=== PATIENT | female | born 1980 | race American Indian/Alaskan Native ===

== ENCOUNTER 2019-03-20 10:35 | Emergency (ER) | payer MEDICAID ==
[2019-03-20 10:42] VITALS: BP 117/73
--- NOTE | 2019-03-20 11:20 | Emergency Department Report ---
HPI - General Chief Complaint: Medical Clearance Time Seen by Provider: 03/20/19 11:05 - HPI HPI: 38-year-old female presents to the emergency department for "an emergency medication refill" of her psychiatric medications. The patient says that she moved here from [facility] about a month or so ago and she just recently ran out of her medication within the past few weeks. She has a history of bipolar disorder, schizophrenia. The patient says that she has an appointment on Monday with [facility] but she was told to go to the emergency department if she needed anything prior to that appointment. The patient complains of insomnia and some paranoia in which she feels that someone is trying to kill her. She denies any suicidal or homicidal ideations. ED Past Medical Hx - Past Medical History Previous Medical History?: Yes Hx Psychiatric Treatment: Yes (Manic depressant/Bi polar) - Surgical History Past Surgical History?: Yes Additional Surgical History: C section ED Review of Systems ROS: Stated complaint: MED REFILL Other details as noted in HPI Comment: All other systems reviewed and negative Constitutional: denies: chills, fever Respiratory: denies: shortness of breath Cardiovascular: denies: chest pain Gastrointestinal: denies: abdominal pain Neurological: denies: headache, weakness Psychiatric: denies: homicidal thoughts, suicidal thoughts Physical Exam - Physical Exam Vital Signs: Vital Signs 03/20/19 10:40 Temperature 97.8 F Pulse Rate 92 H Respiratory 17 Rate Blood Pressure 117/73 O2 Sat by Pulse 98 Oximetry Physical Exam: GENERAL: The patient is well-developed well-nourished. HENT: Normocephalic. Atraumatic. Patient has moist mucous membranes. EYES: Extraocular motions are intact. NECK: Supple. Trachea is midline. CHEST/LUNGS: Clear to auscultation. There is no respiratory distress noted. HEART/CARDIOVASCULAR: Regular. There is no tachycardia. There is no murmur. ABDOMEN: Abdomen is soft, nontender. Patient has normal bowel sounds. There is no abdominal distention. SKIN: Skin is warm and dry. NEURO: The patient is awake, alert, and cooperative. The patient has no focal neurologic deficits. Normal speech. MUSCULOSKELETAL: There is no tenderness or deformity. There is no evidence of acute injury. PSYCH: Patient has a flat affect. ED Course Vital Signs 03/20/19 10:40 Temperature 97.8 F Pulse Rate 92 H Respiratory 17 Rate Blood Pressure 117/73 O2 Sat by Pulse 98 Oximetry ED Medical Decision Making - Lab Data Result diagrams: 03/20/19 11:27 03/20/19 11:27 - Medical Decision Making This patient presents with the complaint of needing a medication refill for her bipolar disorder and schizophrenia. She has an appointment, allegedly, with [facility] in 2 days. She admits to some insomnia and paranoia. On examination the patient does has a flat affect. During the patient's ED course, I did not notice any response to internal stimuli. She denies any suicidal or homicidal ideations. Some labs were obtained that are mostly unremarkable except for some mild hyperkalemia and a urine drug screen positive for marijuana. The patient was seen by the psychiatric tubing machine operator, Sarita, who agrees that the patient does not necessarily meet criteria to be made a 1013 or to require involuntary inpatient psychiatric admission. We discussed with the patient and her sister that we do not usually refill or restart psychiatric medications when patient's have been off of them for an extended period of time as they usually require some type of titration. The patient's sister says that she is willing to continue to house and monitor the patient until follow-up on Monday, but will return to the emergency department if there is any worsening of her symptoms, signs that she has a desire to harm herself or others, or with any acute distress. - Differential Diagnosis schizophrenia, bipolar disorder, schizoaffective, substance abuse Critical Care Time: No Critical care attestation.: If time is entered above; I have spent that time in minutes in the direct care of this critically ill patient, excluding procedure time. ED Disposition Clinical Impression: History of schizophrenia, History of bipolar disorder, Hypokalemia, Encounter for medication refill Disposition: DC-01 TO HOME OR SELFCARE Is pt being admited?: No Condition: Stable Instructions: Hypokalemia (ED), Bipolar Disorder (ED), Schizophrenia (ED) Additional Instructions: Please follow-up with the [facility] on Monday as previously sche duled, or see the [facility], or any of the other outpatient referrals given to by the psychiatric assessment team. Return to the emergency Department with any worsening of your symptoms, thoughts of harming yourself or others, or with any acute distress. Referrals: [facility] [Outside] - [place] Time of Disposition: 12:36
[2019-03-20 12:16] LABS: Basophils # (Auto) 0.1 K/mm3 (0.0-0.1); Basophils % (Auto) 0.7 % (0.0-1.8); Eosinophils # (Auto) 0.1 K/mm3 (0.0-0.4); Eosinophils % (Auto) 1.5 % (0.0-4.3); Hematocrit 41.3 % (30.3-42.9); Hemoglobin 13.5 gm/dl (10.1-14.3); Lymphocytes # (Auto) 2.7 K/mm3 (1.2-5.4); Lymphocytes % (Auto) 30.4 % (13.4-35.0); Mean Corpuscular HGB Conc 33 % (30-34); Mean Corpuscular Volume 89 fl (79-97); Monocytes # (Auto) 0.5 K/mm3 (0.0-0.8); Monocytes % (Auto) 5.9 % (0.0-7.3); Platelet Count 306 K/mm3 (140-440); Red Blood Count 4.66 M/mm3 (3.65-5.03)
[2019-03-20 12:20] LABS: BUN/Creatinine Ratio 7; Blood Urea Nitrogen 6 mg/dL (7-17); Calcium 9.1 mg/dL (8.4-10.2); Hemolysis Index 6
[2019-03-20] MEDS ORDERED: K-DUR PO ONE (12:34)
[2019-03-20 12:35] LABS: Bacteria,Urine 2+ /HPF (Negative); Bilirubin,Urine NEG (Negative); Blood,Urine NEG (Negative); Color,Urine Yellow (Yellow); Mucus,Urine 2+ /HPF; Protein,Urine <15 mg/dL mg/dL (Negative); Urobilinogen,Urine < 2.0 mg/dL (<2.0)
[2019-03-20 12:39] LABS: Amphetamine Screen,Urine PRESUMPTIVE NEGATIVE; Benzodiazepines Screen,Urine PRESUMPTIVE NEGATIVE; Cocaine Screen,Urine PRESUMPTIVE NEGATIVE; Methadone Screen,Urine PRESUMPTIVE NEGATIVE; Opiate Screen,Urine PRESUMPTIVE NEGATIVE
[2019-03-20 12:51] LABS: Cannabinoid Screen,Urine PRESUMPTIVE POSITIVE
== END 2019-03-20 12:51 | disposition home or self-care (01) ==
LOC: ED 10:35
DX: F31.9 Bipolar disorder, unspecified (principal); F20.9 Schizophrenia, unspecified; Z76.0 Encounter for issue of repeat prescription; E87.6 Hypokalemia
CPT/HCPCS: 36415; 80048; 80307; 80320; 81001; 85025; 99284; G0480

== ENCOUNTER 2021-07-23 04:20 | Emergency (ER) | payer MEDICAID ==
[2021-07-23 05:27] VITALS: BP 104/69
[2021-07-23] MEDS ORDERED: AMOXICILLIN/K CLAV 875/125MG TAB PO ONE (05:45)
[2021-07-23] MEDS ORDERED: traMADol 50 MG TAB PO ONE (05:45)
--- NOTE | 2021-07-23 06:33 | Emergency Department Report ---
ED General Adult HPI - General Chief complaint: Dental/Oral Stated complaint: DENTAL SWELLING Time Seen by Provider: 07/23/21 05:43 Source: patient Mode of arrival: Ambulatory Limitations: No Limitations - History of Present Illness Initial comments: Patient 41-year-old female who presents for dental pain and swelling X4 days. This is an acute on chronic problem. Patient with multiple dental caries. Patient denies fevers denies chills patient denies throat pain or ear pain. Patient is tolerating p.o. intake. Patient has not seen dentist. Patient is a [id number] smoker. Patient does not appear toxic at this time there is no gross facial swelling. Severity scale (0 -10): 6 - Related Data Previous Rx's Medication Instructions Recorded Last Taken Type Amoxicillin [Trimox CAP] 500 mg PO Q8H 7 Days #21 capsule 07/23/21 Unknown Rx Chlorhexidine Mouthwash [Peridex] 15 ml MM BID #1 bottle 07/23/21 Unknown Rx traMADoL [Ultram] 50 mg PO Q6HR PRN #12 tablet 07/23/21 Unknown Rx Allergies Allergy/AdvReac Type Severity Reaction Status Date / Time No Known Allergies Allergy Unverified 03/20/19 10:39 ED Review of Systems ROS: Stated complaint: DENTAL SWELLING Other details as noted in HPI Constitutional: denies: chills, fever Eyes: denies: eye pain, eye discharge, vision change ENT: as per HPI, dental pain. denies: ear pain, throat pain, congestion Respiratory: denies: cough, shortness of breath, wheezing Cardiovascular: denies: chest pain, palpitations Endocrine: no symptoms reported Gastrointestinal: denies: abdominal pain, nausea, vomiting, diarrhea Genitourinary: denies: urgency, dysuria, discharge Musculoskeletal: denies: back pain, joint swelling, arthralgia Skin: denies: rash, lesions Neurological: denies: headache, weakness, paresthesias, vertigo Psychiatric: denies: anxiety, depression Hematological/Lymphatic: denies: easy bleeding, easy bruising ED Past Medical Hx - Past Medical History Hx Psychiatric Treatment: Yes (Manic depressant/Bi polar) - Surgical History Additional Surgical History: C section - Social History Smoking Status: Current Every Day Smoker Substance Use Type: Alcohol - Medications Home Medications: Home Medications Medication Instructions Recorded Confirmed Last Taken Type Amoxicillin [Trimox CAP] 500 mg PO Q8H 7 Days #21 capsule 07/23/21 Unknown Rx Chlorhexidine Mouthwash [Peridex] 15 ml MM BID #1 bottle 07/23/21 Unknown Rx traMADoL [Ultram] 50 mg PO Q6HR PRN #12 tablet 07/23/21 Unknown Rx ED Physical Exam - General Limitations: No Limitations General appearance: alert, in no apparent distress - Head Head exam: Present: normocephalic, normal inspection - Eye Eye exam: Present: normal appearance, PERRL, EOMI Pupils: Present: normal accommodation - ENT ENT exam: Present: mucous membranes moist, TM's normal bilaterally, normal external ear exam - Expanded ENT Exam Expanded Teeth exam: Present: dental caries (Multiple), dental tenderness # (21 mild gum erythema and swelling with no focal abscess noted) Throat exam: Negative: tonsillar erythema, tonsillomegaly, tonsillar exudate, R peritonsillar mass, L peritonsillar mass - Neck Neck exam: Present: normal inspection, full ROM. Absent: tenderness, meningismus, lymphadenopathy, thyromegaly - Respiratory Respiratory exam: Present: normal lung sounds bilaterally. Absent: respiratory distress, wheezes, stridor, chest wall tenderness - Cardiovascular Cardiovascular Exam: Present: regular rate, normal rhythm, normal heart sounds. Absent: systolic murmur, diastolic murmur, rubs, gallop - GI/Abdominal GI/Abdominal exam: Present: soft, normal bowel sounds - Rectal Rectal exam: Present: deferred - Extremities Exam Extremities exam: Present: normal inspection, full ROM, normal capillary refill - Back Exam Back exam: Present: normal inspection, full ROM. Absent: CVA tenderness (R), CVA tenderness (L) - Neurological Exam Neurological exam: Present: alert, oriented X3, CN II-XII intact, normal gait - Expanded Neurological Exam Expanded Patient oriented to: Present: person, place, time Best Eye Response (Mcroberts): (4) open spontaneously Best Motor Response (Mcroberts): (6) obeys commands Best Verbal Response (Mcroberts): (5) oriented Brenda Total: 15 - Psychiatric Psychiatric exam: Present: normal affect, normal mood - Skin Skin exam: Present: warm, dry, intact, normal color. Absent: rash ED Course Vital Signs 07/23/21 07/23/21 05:26 05:57 Temperature 98.6 F Pulse Rate 70 Respiratory 20 14 Rate Blood Pressure 104/69 [Right] O2 Sat by Pulse 100 Oximetry ED Medical Decision Making - Medical Decision Making This is infected dental caries plan DC to home, with prescription. Follow-up with dentist in 2 to 3 days. Return to emergency department should symptoms worsen. Patient currently is alert oriented x3. Patient is tolerating p.o. intake. Patient is with no acute distress at this time. Critical care attestation.: If time is entered above; I have spent that time in minutes in the direct care of this critically ill patient, excluding procedure time. ED Disposition Clinical Impression: Infected dental caries Disposition: 01 HOME / SELF CARE / HOMELESS Is pt being admited?: No Does the pt Need Aspirin: No Condition: Stable Instructions: Dental Abscess, [id number] Additional Instructions: Take medications as prescribed, follow-up with your dentist in 2 to 3 days. Return to the emergency department should symptoms worsen. Prescriptions: Chlorhexidine Mouthwash [Peridex] 15 ml MM BID #1 bottle Amoxicillin [Trimox CAP] 500 mg PO Q8H 7 Days #21 capsule traMADoL [Ultram] 50 mg PO Q6HR PRN #12 tablet PRN Reason: Pain Referrals: [facility] [Outside] - 3-5 Days [facility] [Provider Group] - 3-5 Days Forms: Work/School Release Form(ED) Time of Disposition: 06:34
== END 2021-07-23 07:56 | disposition home or self-care (01) ==
LOC: ED 04:20
DX: K02.9 Dental caries, unspecified (principal); F17.200 Nicotine dependence, unspecified, uncomplicated; Z98.890 Other specified postprocedural states; Z72.89 Other problems related to lifestyle; Z79.899 Other long term (current) drug therapy
CPT/HCPCS: 99282